=== PATIENT | male | born 1960 | race Two or more races ===

== ENCOUNTER 2017-06-30 16:40 | Emergency (ER) | payer MEDICAID, OTHER ==
[~2017-06-30] VITALS: Ht 157.5 cm; Wt 77.0 kg
[2017-06-30] MEDS ORDERED: MELO-106 PO (16:51)
[2017-06-30] MEDS ORDERED: AMLODIPINE 5MG TABLET PO ONE (18:15)
[2017-06-30] MEDS ORDERED: CLONIDINE 0.1MG TABLET PO ONE (18:15)
[2017-06-30] MEDS ORDERED: MORPHINE SULFATE 10 MG/ML CPJ IM ONE (18:15)
[2017-06-30 19:26] VITALS: BP 172/103
== END 2017-06-30 20:59 | disposition home or self-care (01) ==
LOC: ER 17:26
DX: M48.56XA Collapsed vertebra, not elsewhere classified, lumbar region, initial encounter for fracture (principal); I16.0 Hypertensive urgency; I10 Essential (primary) hypertension; E11.9 Type 2 diabetes mellitus without complications; M54.5 Low back pain; F17.200 Nicotine dependence, unspecified, uncomplicated; Z86.73 Personal history of transient ischemic attack (TIA), and cerebral infarction without residual deficits
CPT/HCPCS: 96372; 99283; J2270